=== PATIENT | female | born 1980 | race Two or more races ===

== ENCOUNTER 2021-04-19 21:46 | Emergency (ER) | payer SELFPAY ==
[~2021-04-19] VITALS: Ht 157.5 cm; Wt 108.0 kg
[2021-04-20] MEDS ORDERED: HYDROCODONE/ACETAMINOPHEN 5/325MG TABLET PO ONE
[2021-04-20] MEDS ORDERED: KETOROLAC 30MG/ML VIAL IM ONE
[2021-04-20] MEDS ORDERED: METHOCARBAMOL 500MG TABLET PO ONE
[2021-04-20] MEDS ORDERED: METH-653 MT (02:10)
[2021-04-20] MEDS ORDERED: HYDR-4346 MT (02:10)
[2021-04-20] MEDS ORDERED: IBUP-2030 MT (02:10)
[2021-04-20 02:20] VITALS: BP 114/83
== END 2021-04-20 02:24 | disposition home or self-care (01) ==
LOC: ER 21:46
DX: M54.42 Lumbago with sciatica, left side (principal); Z98.890 Other specified postprocedural states
CPT/HCPCS: 96372; 99283; J1885